=== PATIENT | male | born 1985 | race Caucasian/White ===

== ENCOUNTER 2020-12-14 08:16 | Day surgery (SDC) | payer BC ==
[2020-12-09 14:47] VITALS: BMI 34.3
[2020-12-14 08:45] VITALS: TEMP 98.5
[2020-12-14] MEDS: LACTATED RINGERS 1,000 ML IV SCH ×2 (08:56→09:12)
[2020-12-14] MEDS ORDERED: PROPOFOL 10 MG/ML 20 ML VIAL IV ONE (09:14)
[2020-12-14] MEDS ORDERED: LIDOCAINE 1% INJ 10MG/ML (20 ML MDV) ONE (09:14)
--- NOTE | 2020-12-14 09:16 | P.GSHP ---
History of Present Illness H&P Date: 12/14/20 Chief Complaint: Screening, family history of colon cancer in father Patient here today for colonoscopy. Last colonoscopy 5 years ago. He has had 3 colonoscopies so far. No bowel complaints. Father passed from colon cancer 19 years ago. Past Medical History Past Medical History: Hypertension Additional Past Medical History / Comment(s): FAMILY HX COLON CANCER History of Any Multi-Drug Resistant Organisms: None Reported Additional Past Surgical History / Comment(s): COLONOSCOPY X 3 Past Anesthesia/Blood Transfusion Reactions: No Reported Reaction Smoking Status: Former smoker - Past Family History Father Family Medical History: Cancer Additional Family Medical History / Comment(s): COLON Medications and Allergies Home Medications Medication Instructions Recorded Confirmed Type Phentermine HCl 37.5 mg PO AC-BRKFST 12/09/20 12/14/20 History amLODIPine BESYLATE 5 mg PO DAILY 12/09/20 12/14/20 History lisinopriL 20 mg PO BID 12/09/20 12/14/20 History Allergies Allergy/AdvReac Type Severity Reaction Status Date / Time No Known Allergies Allergy Verified 12/14/20 08:41 Surgical - Exam Vital Signs Temp Pulse Resp BP Pulse Ox 98.5 F 80 18 147/83 97 12/14/20 08:44 12/14/20 08:44 12/14/20 08:44 12/14/20 08:44 12/14/20 08:44 Physical exam: General: Well-developed, well-nourished HEENT: Normocephalic, sclerae nonicteric Abdomen: Nontender, nondistended Extremities: No edema Neuro: Alert and oriented Assessment and Plan (1) Colon cancer screening Narrative/Plan: Will proceed with colonoscopy Current Visit: Yes Status: Acute Code(s): Z12.11 - ENCOUNTER FOR SCREENING FOR MALIGNANT NEOPLASM OF COLON SNOMED Code(s): 668933569
--- NOTE | 2020-12-14 09:28 | P.PCN ---
Date of Procedure: 12/14/20 Procedure(s) Performed: PREOPERATIVE DIAGNOSIS: Colon cancer screening, family history of colon cancer in father POSTOPERATIVE DIAGNOSIS: Suboptimal prep otherwise normal PROCEDURE: Colonoscopy ANESTHESIA: MAC SURGEON: Troy Wilkinson M.D. SPECIMENS: None ENDOSCOPIC PROCEDURE: The patient was placed on the endoscopy table in the left decubitus position. The Olympus colonoscope was inserted into the anus and passed under direct visualization to the base of the cecum. The appendiceal orifice was visualized. From that point the scope was slowly withdrawn inspecting all surfaces carefully. There were no neoplastic inflammatory or polypoid lesions throughout the cecum, ascending, transverse, descending, sigmoid and rectum. There was no visible diverticulosis noted. The patient's prep overall was slightly suboptimal. Digital rectal examination was normal. The patient was taken to the recovery room in stable condition per anesthesia guidelines. RECOMMENDATIONS: Resume diet. Follow-up colonoscopy 5 years.
[2020-12-14 10:10] VITALS: BP 114/63; PULSE 72; RESP 20
== END 2020-12-14 10:03 | disposition home or self-care (01) ==
LOC: ORWHC2ENDO 08:16
PROVIDERS: ATTEND Surgery
DX: Z12.11 Encounter for screening for malignant neoplasm of colon (principal); Z80.0 Family history of malignant neoplasm of digestive organs; I10 Essential (primary) hypertension; Z98.890 Other specified postprocedural states; Z87.891 Personal history of nicotine dependence; Z79.899 Other long term (current) drug therapy
CPT/HCPCS: J2001; J2704; G0105